=== PATIENT | male | born 1960 | race Caucasian/White ===

== ENCOUNTER 2017-10-27 11:08 | Inpatient (IN) | payer MEDICAID ==
[~2017-10-27] VITALS: Ht 180.3 cm; Wt 73.9 kg
[2017-10-27 11:13] VITALS: BP 131/81
--- NOTE | 2017-10-27 11:17 | NUR ---
PT AMBULATED W/ STEADY GAIT TO BED ONE AT THIS TIME.
[2017-10-27] MEDS ORDERED: ALBUTEROL 0.083% 2.5 MG/3 ML NEBU INH ONE (11:20)
[2017-10-27] MEDS ORDERED: predniSONE 20 MG TAB PO ONE (11:20)
[2017-10-27] MEDS ORDERED: ALBUTEROL SULFATE/IPRATROPIU 3 ML SOL IH ONE (11:20)
--- NOTE | 2017-10-27 11:20 | NUR ---
56 YO M BIB W/ C/O SOB X 2 WEEKS THAT HAS BEEN INTERMITTENT. PT DENIES PAIN. PT A&O X 4. GCS 15. CMS INTACT. AMBULATORY W/ STEADY GAIT ATTHIS TIME. PT DENIES N/V/D. STATES HE HAS HAD A PRODUCTIVE COUGH W/ GREEN PHLEGM X 2 WEEKS. HE STATES THE SOB HAS BEEN LIKE A ROLLER COASTER ON AND OFF. STATES THIS TIME IT IS REALLY BAD TODAY. RESPIRATIONS ARE EVEN AND UNLABORED, BUT WHILE CHANGING PT DID BECOME SHORT OF BREATH. ENCOURAGE PT TO SIT DOWN/LAY DOWN AND REST. LUNG SOUNDS CLEAR UPPER LOBES, LEFT LOWER LOBE WITH CRACKLES. ER MD HERNANDEZ NOTIFIED OF PT STATUS. PT NEEDS MET AT THIS TIME. SAFETY PRECAUTIONS IN PLACE. WILL CONTINUE TO MONITOR.
--- NOTE | 2017-10-27 11:48 | NUR ---
Assumed care of patient. Pt aox4. Pt tolerated breathing txt from RT. Pulse jt=224% on ra. No acute resp distress. All needs met at this time. Will continue to monitor.
--- NOTE | 2017-10-27 12:15 | NUR ---
PATIENT STATES THAT HE HAS BEEN DIAGNOSED WITH SARCOIDOSIS SINCE 2000. WAS GIVEN PREDNISONE TO USE 3X A DAY BUT FELT IT MADE HIS MOOD CHANGE TO ANGRY OR IRRITABLE. PATIENT WENT TO [facility] BECAUSE HE WAS SOB AND WAS ADVISED TO GO TO ER. PATIENT TOLERATED BREATHING TREATMENT WELL WITH NO ADVERSE EFFECTS OR SOB. EXPLAINED INDICATION AND SIDE EFFECTS OF MEDICATIONS.
--- NOTE | 2017-10-27 13:05 | NUR ---
NOTIFIED LAB BLOOD DRAWN AND BY BEDSIDE. PT WITH NO COMPLAINTS. ALL NEEDS MET AT THIS TIME. WILL CONTINUE TO MONITOR.
[2017-10-27 13:36] LABS: BASOPHILS # (AUTO) 0.1 K/uL (0.00-0.22); BASOPHILS % (AUTO) 0.8 % (0.0-2.0); EOSINOPHILS # (AUTO) 0.3 K/uL (0-0.4); EOSINOPHILS % (AUTO) 2.7 % (0.0-4.0); HEMATOCRIT 38.8 % (36-52); HEMOGLOBIN 13.1 g/dL (12.0-18.0); LYMPHOCYTES # (AUTO) 1.2 K/uL (2.0-11.5); LYMPHOCYTES % (AUTO) 9.9 % (20.5-51.1); MEAN CORPUSCULAR HEMOGLOBIN 29 pg (27-31); MEAN CORPUSCULAR HGB CONC 34 g/dL (33-37); MONOCYTES # (AUTO) 0.8 K/uL (0.8-1.0); NEUTROPHILS # (AUTO) 10.1 K/uL (1.8-7.7); NEUTROPHILS % (AUTO) 80.6 % (42.2-75.2); PLATELET COUNT (AUTO) 419 K/uL (140-450); RED BLOOD CELL COUNT(AUTO) 4.46 MIL/uL (4.20-6.10); RED CELL DISTRIBUTION WIDTH 13.2 % (11.6-13.7); WHITE BLOOD COUNT (AUTO) 12.5 K/uL (4.8-10.8)
[2017-10-27 13:42] LABS: ANION GAP 12.9 (8-16); CARBON DIOXIDE 24.7 mmol/L (21-32); CREATININE 3.4 mg/dL (0.7-1.3); POTASSIUM 3.6 mmol/L (3.5-5.1)
[2017-10-27 13:48] LABS: ALBUMIN 3.1 g/dL (3.4-5.0); TOTAL BILIRUBIN 0.2 mg/dL (0.0-1.0)
--- NOTE | 2017-10-27 14:00 | NUR ---
er md crisostomo by bedside updating patient on plan of care.
--- NOTE | 2017-10-27 14:30 | NUR ---
PT ARRIVED ON THE UNIT WITH 2 ER NURSES. PT AMBULATED FROM RNEY TO BED. PT HAS STEADY GAIT. ACCOMPANIED BY . PT SKIN INTACT. ON ROOM AIR. VITAL SIGNS WITHIN NORMAL LIMITS. O2 SAT AT 96%. IV ON RIGHT FOREARM 20G SL. NO SIGNS OF DISTRESS. MRSA SCREENING DONE. BROWN SOCKS PUT ON. NO COMPLAINS AT THIS TIME. WILL CONTINUE TO MONITOR PT.
--- NOTE | 2017-10-27 14:33 | NUR ---
Patient will be admitted to care of [facility]. Admited to med Surg. Will go to room 104B. Belongings list completed. Bedside Report to Piedad.
[2017-10-27] MEDS ORDERED: LORazepam 2 MG/ML VIAL IVP PRN (14:35)
[2017-10-27] MEDS ORDERED: HYDROcodone/APAP 5/325 MG 1 TAB TAB PO PRN (14:35)
[2017-10-27] MEDS ORDERED: ACETAMINOPHEN 325 MG TAB PO PRN (14:35)
[2017-10-27] MEDS ORDERED: ONDANSETRON 4 MG/2 ML VIAL IVP PRN (14:35)
[2017-10-27 14:58] VITALS: BP 119/79
[2017-10-27] MEDS: DEXT 5% /NACL 0.9% 1,000 ML IV SCH (15:52)
--- NOTE | 2017-10-27 15:57 | NUR ---
STARTED NEW IVF D5NS AT 100ML. PT TOLERATING WELL. AT BEDSIDE. NO COMPLAINTS. WILL CONTINUE TO MONITOR PT.
--- NOTE | 2017-10-27 16:20 | NUR ---
ASSESSED PATIENT. STATED THAT HE WAS FELT SHORT OF BREATH. SPO2 93% HEART RATE 109. PLACED PATIENT ON NASAL CANNULA AT 2L/M. SPOKE WITH THE CHARGE NURSE TO PLACE Q4 PRN ORDER OF DUONEB IF IN THE EVENT THAT THE BORROWER NEEDS A TREATMENT FURTHER ASSISTANCE FOR SOB. ADVISED PATIENT OF PRN TX'S THAT ARE AVAILABLE.
[2017-10-27 16:32] VITALS: BP 118/71
--- NOTE | 2017-10-27 18:31 | NUR ---
ATE 100% OF DINNER. NO COMPLAINTS AT THIS TIME. WILL CONTINUE TO MONITOR PT.
--- NOTE | 2017-10-27 19:05 | NUR ---
RECEIVED PATIENT REPORT AT BEDSIDE. PATIENT AWAKE, ALERT AND ORIENTED. NO S/S OF DISTRESS. PATIENT DENIES PAIN AT THIS TIME. PATIENT ON 2L O2. NO SOB. IV LINE NOTED TO THE RIGHT FA WITH IVF INFUSING WELL. BED LOWERED WITH CALL LIGHT WITHIN REACH. WILL CONTINUE TO MONITOR
--- NOTE | 2017-10-27 19:10 | NUR ---
ENDORSED PT TO THE NIGHTSHIFT NURSE AT BEDSIDE FOR CONTINUITY OF CARE. PT IN STABLE CONDITION.
[2017-10-27 20:08] VITALS: BP 110/72
[2017-10-27] MEDS: ALBUTEROL SULFATE/IPRATROPIU 3 ML SOL IH PRN (20:23)
[2017-10-27] MEDS: methylPREDNISolone SS 40 MG/ML VIAL IVP SCH (21:12)
[2017-10-27] MEDS ORDERED: cefTRIAXone 1,000 MG VIAL ONE (22:05)
--- NOTE | 2017-10-28 00:23 | NUR ---
PATIENT ASLEEP IN BED. NO S/S OF DISTRESS NOTED
[2017-10-28 04:00] VITALS: BP 113/78
[2017-10-28 06:48] LABS: BASOPHILS % (AUTO) 0.1 % (0.0-2.0); HEMATOCRIT 36.7 % (36-52); HEMOGLOBIN 12.4 g/dL (12.0-18.0); LYMPHOCYTES # (AUTO) 0.7 K/uL (2.0-11.5); LYMPHOCYTES % (AUTO) 4.5 % (20.5-51.1); MEAN CORPUSCULAR HEMOGLOBIN 30 pg (27-31); MEAN CORPUSCULAR HGB CONC 34 g/dL (33-37); MEAN CORPUSCULAR VOLUME 87.6 fL (80-94); MONOCYTES # (AUTO) 0.3 K/uL (0.8-1.0); MONOCYTES % (AUTO) 2.1 % (1.7-9.3); NEUTROPHILS # (AUTO) 13.9 K/uL (1.8-7.7); NEUTROPHILS % (AUTO) 93.3 % (42.2-75.2); PLATELET COUNT (AUTO) 470 K/uL (140-450); RED BLOOD CELL COUNT(AUTO) 4.19 MIL/uL (4.20-6.10); RED CELL DISTRIBUTION WIDTH 12.9 % (11.6-13.7); WHITE BLOOD COUNT (AUTO) 14.9 K/uL (4.8-10.8)
[2017-10-28 07:05] LABS: ANION GAP 14.2 (8-16); CARBON DIOXIDE 23.6 mmol/L (21-32); CREATININE 3.5 mg/dL (0.7-1.3); POTASSIUM 4.8 mmol/L (3.5-5.1)
[2017-10-28 07:09] LABS: PHOSPHORUS 3.4 mg/dL (2.5-4.9)
[2017-10-28 07:21] LABS: APPEARANCE,URINE CLEAR (CLEAR); BILIRUBIN,URINE NEGATIVE (NEGATIVE); BLOOD, URINE TRACE-I (NEGATIVE); COLOR,URINE YELLOW (YELLOW); LEUKOCYTE ESTERASE ,URINE NEGATIVE (NEGATIVE); NITRITE, URINE NEGATIVE (NEGATIVE); UGLUCOSE 1+ (NEGATIVE)
--- NOTE | 2017-10-28 07:24 | NUR ---
PATIENT REPORT GIVEN AT BEDSIDE. PATIENT ENDORSED IN STABLE CONDITION
--- NOTE | 2017-10-28 07:26 | NUR ---
PATIENT IS AWAKE, ALERT AND ORIENTEDX4.
--- NOTE | 2017-10-28 07:26 | NUR ---
RECEIVED BEDSIDE REPORT FROM RETAIL ACCOUNT EXECUTIVE NURSE. MS PATIENT. NO SIGNS OF RESP DISTRESS ON ROOM AIR. , STANDARD PRECAUTIONS IN PLACE. PATIENT ABLE TO AMBULATE TO THE RESTROOM, GAIT IS STEADY. IV ON R FA 20G INFUSING D5%/NACL 0.9% AT 100ML/HR. IV IS CLEAN DRY AND INTACT. SKIN IS INTACT. LBM 10/27/17. NO COMPLAINTS OF PAIN. BED IN LOW POSITION. CALL LIGHT WITHIN REACH. WILL CONTINUE TO MONITOR THE PATIENT.
[2017-10-28 08:00] VITALS: BP 117/74
[2017-10-28 08:02] LABS: RBC,URINE 0-5 (RARE) /HPF (0-5); WBC,URINE 0-5 (RARE) /HPF (0-5)
--- NOTE | 2017-10-28 08:04 | NUR ---
PATIENT HAS BEEN SCREENED AND CATEGORIZED LOW RISK. PATIENT WILL BE SEEN WITHIN 7 DAYS OF ADMISSION. 11/03/[address], [facility]
[2017-10-28] MEDS: ALBUTEROL SULFATE/IPRATROPIU 3 ML SOL IH PRN ×2 (08:25→15:32)
[2017-10-28] MEDS: methylPREDNISolone SS 40 MG/ML VIAL IVP SCH ×2 (09:10→21:47)
--- NOTE | 2017-10-28 09:12 | NUR ---
ADMINISTERED MED. PATIENT TOLERATED WELL. IV IS CLEAN, DRY AND INTACT. WILL CONTINUE TO MONITOR THE PATIENT.
[2017-10-28] MEDS: DEXT 5% /NACL 0.9% 1,000 ML IV SCH ×3 (10:35→21:47)
--- NOTE | 2017-10-28 11:45 | NUR ---
PATIENT EATING LUNCH. NO COMPLAINTS AT THIS TIME. NO SIGNS OF RESP DISTRESS ON ROOM AIR. BED IN LOW POSITION. CALL LIGHT WITHIN REACH. WILL CONTINUE TO MONITOR THE PATIENT.
--- NOTE | 2017-10-28 12:37 | NUR ---
PATIENT CURRENTLY SITTING AT BEDSIDE. NO COMPLAINTS AT THIS TIME. NO SIGNS OF DISTRESS ON ROOM AIR. WILL CONTINUE TO MONITOR THE PATIENT.
--- NOTE | 2017-10-28 13:58 | NUR ---
PATIENT IS SLEEPING. NO SIGNS OF RESP DISTRESS ON ROOM AIR. BED IN LOW POSITION. CALL LIGHT WITHIN REACH. WILL CONTINUE TO MONITOR THE PATIENT.
--- NOTE | 2017-10-28 15:20 | NUR ---
PATIENT IS WITH FAMILY AT THE BEDSIDE. NO S/SX OF DISTRESS. NO COMPLAINTS AT THIS TIME. BED IN LOW POSITION. CALL LIGHT WITHIN REACH. WILL CONTINUE TO MONITOR THE PATIENT.
[2017-10-28 16:00] VITALS: BP 107/65
--- NOTE | 2017-10-28 16:34 | NUR ---
FAMILY AT BEDSIDE. PATIENT HAS NO SIGNS OF DISTRESS ON ROOM AIR. BED IN LOW POSITION. CALL LIGHT WITHIN REACH. WILL CONTINUE TO MONITOR THE PATIENT.
--- NOTE | 2017-10-28 18:05 | NUR ---
FAMILY AT BEDSIDE. ANSWERED ALL QUESTIONS AT THIS TIME. PATIENT SHOWS NO SIGNS OF RESP DISTRESS ON ROOM AIR. BED IN LOW POSITION. CALL LIGHT WITHIN REACH, WILL CONTINUE TO MONITOR THE PATIENT.
--- NOTE | 2017-10-28 19:10 | NUR ---
GAVE BEDSIDE REPORT TO OPTICAL LATHE OPERATOR NURSE. PATIENT IS ENDORSED IN STABLE CONDITION.
--- NOTE | 2017-10-28 19:11 | NUR ---
RECEIVED BEDSIDE REPORT FROM DAY SHIFT NURSE LIV RN, PT STABLE, NO DISTRESS NOTED, FAMILY BY BEDSIDE, PT ON ROOM AIR, NO SOB, IV TO R FA 20G RUNNING D5NS @100ML/HR, INFUSING WELL, INITIAL ASSESSMENT DONE, ALL SAFETY PRECAUTION MET, WILL CONTINUE TO MONITOR.
--- NOTE | 2017-10-28 21:10 | NUR ---
PT STATED IV HURTING, CHECKED ON PT IV, PT IV INFILTRATED, NEW IV INSERTED R FA 22G, OLD IV TAKEN OUT, CATH INTACT.
--- NOTE | 2017-10-28 21:47 | NUR ---
CHECKED ON PT, PT SLEEPING, NO DISTRESS NOTED, CALL LIGHT WITHIN REACH, WILL CONTINUE TO MONITOR.
[2017-10-29] VITALS: BP 117/71
--- NOTE | 2017-10-29 00:10 | NUR ---
CHECKED ON PT, PT SLEEPING, NO DISTRESS NOTED, CALL LIGHT WITHIN REACH, WILL CONTINUE TO MONITOR.
--- NOTE | 2017-10-29 02:11 | NUR ---
PT SLEEPING, NO DISTRESS NOTED, CALL LIGHT WITHIN REACH, WILL CONTINUE TO MONITOR.
--- NOTE | 2017-10-29 04:10 | NUR ---
CHECKED ON PT, PT SLEEPING, NO DISTRESS NOTED, CALL LIGHT WITHIN REACH, WILL CONTINUE TO MONITOR.
[2017-10-29] MEDS: DEXT 5% /NACL 0.9% 1,000 ML IV SCH ×2 (06:06→18:05)
--- NOTE | 2017-10-29 07:11 | NUR ---
ENDORSED PLAN OF CARE TO DAY SHIFT NURSE LIV RN, FOR CONTINUOUS OF CARE, PT STABLE, NO DISTRESS NOTED, CALL LIGHT WITHIN REACH.
--- NOTE | 2017-10-29 07:12 | NUR ---
RECEIVED BEDSIDE REPORT FROM PLATE PAINTER APPRENTICE NURSE. PATIENT IS AWAKE, ALERT AND ORIENTEDX4. NO RESP DISTRESS ON ROOM AIR. IV ON RFA 22 G INFUSING D5NS AT 100 ML/HR. IV IS CLEAN, DRY AND INTACT. SKIN IS INTACT. PATIENT AMBULATES WELL. BED IN LOW POSITION. CALL LIGHT WITHIN REACH, WILL CONTINUE TO MONITOR THE PATIENT.
[2017-10-29 08:00] VITALS: BP 105/58
[2017-10-29 08:50] LABS: ANION GAP 13.7 (8-16); CARBON DIOXIDE 22.7 mmol/L (21-32); CREATININE 3.4 mg/dL (0.7-1.3); POTASSIUM 4.4 mmol/L (3.5-5.1)
[2017-10-29] MEDS: methylPREDNISolone SS 40 MG/ML VIAL IVP SCH ×2 (08:55→21:43)
[2017-10-29 08:57] LABS: MAGNESIUM 1.9 mg/dL (1.8-2.4); PHOSPHORUS 4.3 mg/dL (2.5-4.9)
[2017-10-29 08:59] LABS: BASOPHILS # (AUTO) 0.1 K/uL (0.00-0.22); BASOPHILS % (AUTO) 0.7 % (0.0-2.0); HEMATOCRIT 34.3 % (36-52); HEMOGLOBIN 11.2 g/dL (12.0-18.0); LYMPHOCYTES # (AUTO) 0.7 K/uL (2.0-11.5); LYMPHOCYTES % (AUTO) 3.7 % (20.5-51.1); MEAN CORPUSCULAR HEMOGLOBIN 29 pg (27-31); MEAN CORPUSCULAR HGB CONC 33 g/dL (33-37); MEAN CORPUSCULAR VOLUME 88.7 fL (80-94); MONOCYTES # (AUTO) 0.6 K/uL (0.8-1.0); MONOCYTES % (AUTO) 3.2 % (1.7-9.3); NEUTROPHILS # (AUTO) 17.3 K/uL (1.8-7.7); NEUTROPHILS % (AUTO) 92.4 % (42.2-75.2); PLATELET COUNT (AUTO) 468 K/uL (140-450); RED BLOOD CELL COUNT(AUTO) 3.87 MIL/uL (4.20-6.10); RED CELL DISTRIBUTION WIDTH 13.2 % (11.6-13.7); WHITE BLOOD COUNT (AUTO) 18.7 K/uL (4.8-10.8)
--- NOTE | 2017-10-29 09:01 | NUR ---
ADMINISTERED MORNING MED. PATIENT TOLERATED WELL. IV SITE IS CLEAN, DRY AND INTACT. NO COMPLAINTS AT THIS TIME. BED IN LOW POSITION. CALL LIGHT WITHIN REACH. WILL CONTINUE TO MONITOR THE PATIENT.
--- NOTE | 2017-10-29 10:48 | NUR ---
PATIENT SITTING IN BED WATCHING VIDEOS ON HIS PHONE. NO COMPLAINTS AT THIS TIME. CALL LIGHT WITHIN REACH, WILL CONTINUE TO MONITOR THE PATIENT.
--- NOTE | 2017-10-29 12:30 | NUR ---
PATIENT WENT TO GET CT DONE.
--- NOTE | 2017-10-29 12:35 | NUR ---
PATIENT BACK FROM CT. NO SIGNS OF RESP DISTRESS ON ROOM AIR. BED IN LOW POSITION. CALL LIGHT WITHIN REACH. WILL CONTINUE TO MONITOR THE PATIENT.
--- NOTE | 2017-10-29 14:33 | NUR ---
PATIENT WITH FAMILY AT BEDSIDE. NO COMPLAINTS AT THIS TIME. NO SIGNS OF RESP DISTRESS ON ROOM AIR. BED IN LOW POSITION. CALL LIGHT WITHIN REACH. WILL CONTINUE TO MONITOR THE PATIENT.
[2017-10-29 16:00] VITALS: BP 127/80
--- NOTE | 2017-10-29 16:30 | NUR ---
AT BEDSIDE. NO S/SX OF RESP DISTRESS. NO COMPLAINTS AT THIS TIME. BED IN LOW POSITION. CALL LIGHT WITHIN REACH. WILL CONTINUE TO MONITOR THE PATIENT.
--- NOTE | 2017-10-29 18:10 | NUR ---
ADMINISTERED IVF. IV SITE IS CLEAN,DRY AND INTACT. PATIENT TOLERATING FLUIDS WELL. WILL CONTINUE TO MONITOR THE PATIENT.
--- NOTE | 2017-10-29 19:23 | NUR ---
GAVE BEDSIDE REPORT TO NEEDLE CONTROL CHENILLER NURSE. PATIENT IS ENDORSED IN STABLE CONDITION.
--- NOTE | 2017-10-29 19:24 | NUR ---
RECEIVED BEDSIDE REPORT FROM DAY SHIFT NURSE LIV RN, PT STABLE, NO DISTRESS NOTED, IV TO RFA 20G RUNNING D5NS @ 100ML/HR, PT ON ROOM AIR NO SOB, INITIAL ASSESSMENT DONE, ALL SAFETY PRECAUTION MET, CALL LIGHT WITHIN REACH, WILL CONTINUE TO MONITOR.
--- NOTE | 2017-10-29 21:44 | NUR ---
DUE MEDICATION GIVEN, PT TOLERATED WELL, NO DISTRESS NOTED, CALL LIGHT WITHIN REACH, WILL CONTINUE TO MONITOR.
[2017-10-30] VITALS: BP 126/82
--- NOTE | 2017-10-30 00:01 | NUR ---
CHECKED ON PT, PT SLEEPING, NO DISTRESS NOTED, CALL LIGHT WITHIN REACH, WILL CONTINUE TO MONITOR.
--- NOTE | 2017-10-30 02:10 | NUR ---
PT SLEEPING, NO DISTRESS NOTED, CALL LIGHT WITHIN REACH, WILL CONTINUE TO MONITOR.
[2017-10-30] MEDS: DEXT 5% /NACL 0.9% 1,000 ML IV SCH ×2 (03:42→14:29)
--- NOTE | 2017-10-30 05:50 | NUR ---
CHECKED ON PT, SLEEPING, EASY TO AROUSE, DENIES ANY PAIN, NO DISTRESS NOTED, CALL LIGHT WITHIN REACH, WILL CONTINUE TO MONITOR.
[2017-10-30 07:05] LABS: BASOPHILS % (AUTO) 0.1 % (0.0-2.0); HEMATOCRIT 36.4 % (36-52); HEMOGLOBIN 12.2 g/dL (12.0-18.0); LYMPHOCYTES % (AUTO) 6.9 % (20.5-51.1); MEAN CORPUSCULAR HEMOGLOBIN 30 pg (27-31); MEAN CORPUSCULAR HGB CONC 34 g/dL (33-37); MEAN CORPUSCULAR VOLUME 88.4 fL (80-94); MONOCYTES # (AUTO) 0.5 K/uL (0.8-1.0); MONOCYTES % (AUTO) 3.6 % (1.7-9.3); NEUTROPHILS # (AUTO) 13.2 K/uL (1.8-7.7); NEUTROPHILS % (AUTO) 89.4 % (42.2-75.2); PLATELET COUNT (AUTO) 438 K/uL (140-450); RED BLOOD CELL COUNT(AUTO) 4.12 MIL/uL (4.20-6.10); RED CELL DISTRIBUTION WIDTH 13.1 % (11.6-13.7); WHITE BLOOD COUNT (AUTO) 14.8 K/uL (4.8-10.8)
[2017-10-30 07:27] LABS: ALBUMIN 2.9 g/dL (3.4-5.0); ANION GAP 13.8 (8-16); CARBON DIOXIDE 25.8 mmol/L (21-32); CREATININE 2.9 mg/dL (0.7-1.3); MAGNESIUM 1.9 mg/dL (1.8-2.4); PHOSPHORUS 3.7 mg/dL (2.5-4.9); POTASSIUM 4.6 mmol/L (3.5-5.1); TOTAL BILIRUBIN 0.1 mg/dL (0.0-1.0)
--- NOTE | 2017-10-30 07:27 | NUR ---
ENDORSED PLAN OF CARE TO DAY SHIFT NURSE CONOR GARNICA, PT STABLE, NO DISTRESS NOTED, CALL LIGHT WITHIN REACH.
--- NOTE | 2017-10-30 07:28 | NUR ---
RECEIVED REPORT FROM MODELING INSTRUCTOR NURSE. PATIENT LYING IN BED COMFORTABLY. NO DISTRESS NOTED. DENIES ANY PAIN. RESPIRATIONS EVEN, UNLABORED, ON ROOM AIR. AAOX4, CALM, COOPERATIVE, SKIN COLOR APPROPRIATE TO ETHNICITY, WARM TO TOUCH. SKIN IS INTACT. LUNGS CTA ON ALL LOBES. ABDOMEN SOFT, NON-DISTENDED. IV SITE INTACT, PATENT, AND INFUSING IVF PER ORDERS. REVIEWED PLAN OF CARE WITH PATIENT. PATIENT VERBALIZED UNDERSTANDING. SAFETY MEASURES IN PLACE, CALL LIGHT WITHIN REACH. WILL CONTINUE TO MONITOR.
[2017-10-30 08:00] VITALS: BP 133/74
[2017-10-30] MEDS: methylPREDNISolone SS 40 MG/ML VIAL IVP SCH (08:56)
--- NOTE | 2017-10-30 09:00 | NUR ---
PATIENT SITTING IN BED PLAYING ON THE PHONE. NO DISTRESS NOTED. DENIES ANY PAIN. SCHEDULED MEDICATIONS DUE GIVEN. SAFETY MEASURES IN PLACE, CALL LIGHT WITHIN REACH. WILL CONTINUE TO MONITOR.
--- NOTE | 2017-10-30 10:30 | NUR ---
PATIENT SITTING IN BED WATCHING TV. NO DISTRESS NOTED. CONDITION UNCHANGED. DENIES ANY DYSPNEA AT THIS TIME. SAFETY MEASURES IN PLACE, CALL LIGHT WITHIN REACH. WILL CONTINUE TO MONITOR.
--- NOTE | 2017-10-30 13:00 | NUR ---
PATIENT LYING IN BED WATCHING TV. ABLE TO AMBULATE TO BATHROOM AND BACK TO BED WITH STEADY GAIT. CONDITION UNCHANGED. SAFETY MEASURES IN PLACE, CALL LIGHT WITHIN REACH. WILL CONTINUE TO MONITOR.
--- NOTE | 2017-10-30 15:01 | NUR ---
CM NOTE INITIAL REVIEW DONE.
--- NOTE | 2017-10-30 15:25 | NUR ---
PATIENT LYING IN BED WATCHING VIDEOS ON PHONE. NO DISTRESS NOTED. DENIES ANY PAIN. CONDITION UNCHANGED. SAFETY MEASURES IN PLACE, CALL LIGHT WITHIN REACH. WILL CONTINUE TO MONITOR.
[2017-10-30 16:00] VITALS: BP 118/80
--- NOTE | 2017-10-30 17:03 | NUR ---
PATIENT LYING IN BED TALKING WITH FAMILY MEMBERS AT BEDSIDE. NO DISTRESS NOTED. DENIES ANY PAIN. SAFETY MEASURES IN PLACE, CALL LIGHT WITHIN REACH. WILL CONTINUE TO MONITOR.
--- NOTE | 2017-10-30 17:29 | NUR ---
DR. LINTON AT BEDSIDE REVIEWING PLAN OF CARE WITH PATIENT. PER DR. LINTON, PATIENT IS OK TO BE DISCHARGED HOME FROM HIS POINT OF VIEW WITH FOLLOW-UP WITH DR. CHU AT CLINIC WITHIN 1-2 WEEKS. WILL CONTINUE TO MONITOR.
[2017-10-30] MEDS ORDERED: LEVO750T2 PO (18:00)
--- NOTE | 2017-10-30 18:45 | NUR ---
PATIENT BEING DISCHARGED HOME TODAY. PATIENT MADE AWARE. DISCHARGE INSTRUCTIONS PROVIDED TO PATIENT IN PREFERRED LANGUAGE OF [place], FOLLOW-UP VISITS WITH MD'S, NEW/CHANGED PRESCRIPTIONS, DIET REGIMEN, AND DISEASE PROCESS/MANAGEMENT OF SARCOIDOSIS. ANSWERED ALL OF PATIENT'S QUESTIONS REGARDING DISCHARGE. ID BANDS REMOVED. IV SITE REMOVED WITH MINIMAL BLOOD AND LUMEN COMPLETELY INTACT. PATIENT TOLERATED PROCEDURE WELL. ALL BELONGINGS WITH PATIENT. PATIENT AWAITING FOR FAMILY MEMBER TO ARRIVE AROUND 1930 TO TAKE PATIENT HOME. WILL CONTINUE TO MONITOR.
--- NOTE | 2017-10-30 19:00 | NUR ---
PATIENT'S SON ARRIVED AT HOSPITAL READY TO TAKE PATIENT HOME. ALL BELONGINGS WITH PATIENT. ESCORTED PATIENT DOWN TO LOBBY VIA STEADY AMBULATION. PATIENT DISCHARGED AT THIS TIME TO HOME VIA PRIVATE VEHICLE IN STABLE CONDITION.
[2017-10-31 09:07] LABS: IMMUNOGLOBULIN A 336 mg/dL (90-386); IMMUNOGLOBULIN G 1312 mg/dL (700-1600); IMMUNOGLOBULIN M 89 mg/dL (20-172)
== END 2017-10-30 19:00 | disposition home or self-care (01) | DRG 720 ==
LOC: MED 11:08 → MTU 14:02
PROVIDERS: ADMIT Preventive Medicine Preventive Medicine/Occupational Environmental Medicine; ATTEND Preventive Medicine Preventive Medicine/Occupational Environmental Medicine
DX: A41.9 Sepsis, unspecified organism (principal); J96.00 Acute respiratory failure, unspecified whether with hypoxia or hypercapnia; N17.9 Acute kidney failure, unspecified; E44.0 Moderate protein-calorie malnutrition; J40 Bronchitis, not specified as acute or chronic; N18.9 Chronic kidney disease, unspecified; E83.52 Hypercalcemia; D86.9 Sarcoidosis, unspecified; D64.9 Anemia, unspecified; D47.3 Essential (hemorrhagic) thrombocythemia; R73.9 Hyperglycemia, unspecified; E88.09 Other disorders of plasma-protein metabolism, not elsewhere classified; T38.0X5A Adverse effect of glucocorticoids and synthetic analogues, initial encounter; Y92.89 Other specified places as the place of occurrence of the external cause; Z87.01 Personal history of pneumonia (recurrent); Z90.49 Acquired absence of other specified parts of digestive tract; Z68.22 Body mass index [BMI] 22.0-22.9, adult; Z98.890 Other specified postprocedural states
CPT/HCPCS: 36415; 36600; 71045; 71250; 76770; 80048; 80053; 81001; 82306; 82803; 83735; 83880; 84100; 84165; 84484; 85025; 85610; 85651; 85730; 86140; 86334; 87070; 87081; 87086; 87205; 93005; 94640; 99285; J0696; J2920; J7042; J7060; J7512; J7613; J7620; Q0092